=== PATIENT | male | born 1955 | race Caucasian/White ===

== ENCOUNTER 2017-10-20 10:59 | Emergency (ER) | payer SELFPAY ==
[2017-10-20] MEDS ORDERED: TDAP ADULT 0.5 ML INJ (BOOSTRIX) IM ONE (11:22)
--- NOTE | 2017-10-20 11:26 | EDPHY ---
H & P Stated Complaint: left hand laceration Time Seen by Provider: 10/20/17 11:06 HPI/ROS: Chief Complaint: Hand laceration HPI: 61-year-old male sustained a laceration to his left hand with a circular saw while he was cutting a gets from a fence he had torn down. Patient states that the blade guard did not bring back in a place that he slept. He has a approximate 4 cm laceration on the radial aspect of his left hand just proximal to the thumb. He thinks his last tetanus shot was about 10 years ago. ROS: 10 point Review of Systems is negative except as noted in the HPI. Social History: No smoking Family History: non-contributory Physical Exam: General: Awake, alert, no acute distress Extremities: Left hand. Patient has a 4 cm horizontal laceration on the radial aspect of his left hand just over the the 1st metacarpal. There is no bony deformity. He has full flexion and extension strength of his proximal and distal phalanx flexors and extensors. Sensations intact in the radial median and ulnar nerve distribution. Capillary refills less than 2 sec. Skin: No rash - Personal History Current Tetanus Diphtheria and Acellular Pertussis (TDAP): No - Medical/Surgical History Hx Asthma: No Hx Chronic Respiratory Disease: No Hx Diabetes: No Hx Cardiac Disease: No Hx Renal Disease: No Hx Cirrhosis: No Hx Alcoholism: No Hx HIV/AIDS: No Hx Splenectomy or Spleen Trauma: No Other PMH: none - Social History Smoking Status: Current every day smoker Constitutional: Initial Vital Signs Temperature (C) 36.6 C 10/20/17 11:03 Heart Rate 72 10/20/17 11:03 Respiratory Rate 16 10/20/17 11:03 Blood Pressure 178/82 H 10/20/17 11:03 O2 Sat (%) 98 10/20/17 11:03 O2 Delivery Mode Room Air Allergies/Adverse Reactions: No Known Allergies Allergy (Unverified 10/20/17 11:07) Home Medications: Medication Instructions Recorded NK [No Known Home Meds] 10/20/17 Medical Decision Making - Diagnostics Imaging Results: No obvious bony deformity per my interpretation. Imaging: I viewed and interpreted images myself Procedures: Procedure: Laceration repair. Verbal consent was obtained from the patient. The 4 cm laceration on the left hand was anesthetized in the usual fashion. The wound was irrigated, draped and explored to its base with a gloved finger. There were no deep structures involved. No tendon injury was identified. The wound was repaired with 7, 5-0 Ethilon simple interrupted sutures. The wound repair was uncomplicated. The procedure was performed by myself. ED Course/Re-evaluation: 7-year-old male with a hand laceration. No obvious tendon involvement exploration or function. Given the location and nature of the injury will refer to Hand surgery for follow-up. There is no obvious bony involvement on x- ray. Patient has been given instructions for signs of infection and reasons to return. Departure - Departure Disposition: Home, Routine, Self-Care Clinical Impression: Laceration Condition: Good Instructions: Diphtheria/Acellular Pertussis/Tetanus Booster Vaccine (By injection), Care For Your Stitches (ED), Laceration (ED) Additional Instructions: Follow up with the hand surgeon, Dr. Motley, in 2-3 days for further evaluation. Sutures need to be removed in 10 days. Return to the emergency department for increasing redness, discharge from the wound, streaking up your arm, fevers, chills, or any other concerns. Referrals: NONE *PRIMARY CARE P,. [Primary Care Provider] - As per Instructions Niraj Motley MD [Medical Doctor] - As per Instructions
[2017-10-20 12:41] VITALS: BP 142/72
== END 2017-10-20 12:38 | disposition home or self-care (01) ==
LOC: CED 10:59
PROC: 0HQGXZZ Repair Left Hand Skin, External Approach (ICD-10-PCS; principal; 2017-10-20)
DX: S61.412A Laceration without foreign body of left hand, initial encounter (principal); F17.200 Nicotine dependence, unspecified, uncomplicated; Z23 Encounter for immunization; W31.1XXA Contact with metalworking machines, initial encounter
CPT/HCPCS: 73130-PO